=== PATIENT | female | born 1965 | race Caucasian/White ===

== ENCOUNTER → 2024-10-01 15:33 | Outpatient (REF) | payer OTHER, SELFPAY | LOC: HWWDC 15:33 | PROVIDERS: ATTENDING PHYSICIAN Obstetrics & Gynecology; FAMILY PHYSICIAN Internal Medicine; REFERRING PHYSICIAN Chiropractor | DX: Z12.31 Encounter for screening mammogram for malignant neoplasm of breast (principal); M99.03 Segmental and somatic dysfunction of lumbar region | CPT/HCPCS: 72050; 77063; 77067 ==

== ENCOUNTER → 2024-10-08 14:33 | Outpatient (REF) | payer OTHER, SELFPAY | LOC: DHSLP 14:33 | PROVIDERS: ATTENDING PHYSICIAN Internal Medicine | DX: G47.19 Other hypersomnia (principal); R06.83 Snoring | CPT/HCPCS: 95800 ==

== ENCOUNTER → 2025-06-03 07:40 | Outpatient (REF) | payer OTHER, SELFPAY | LOC: HWEVLT 07:40 | PROVIDERS: ATTENDING PHYSICIAN Radiology Vascular & Interventional Radiology | DX: I83.893 Varicose veins of bilateral lower extremities with other complications (principal) | CPT/HCPCS: 93970 ==

== ENCOUNTER → 2025-06-17 15:28 | Outpatient (REF) | payer OTHER, SELFPAY | LOC: HWRAD 15:28 | PROVIDERS: ATTENDING PHYSICIAN Internal Medicine | DX: N28.1 Cyst of kidney, acquired (principal) | CPT/HCPCS: 76775 ==

== ENCOUNTER → 2025-07-02 09:27 | Outpatient (REF) | payer OTHER, SELFPAY | LOC: HWRAD 09:27 | PROVIDERS: ATTENDING PHYSICIAN Internal Medicine | DX: R74.8 Abnormal levels of other serum enzymes (principal) | CPT/HCPCS: 76700 ==